=== PATIENT | male | born 1995 | race Caucasian/White ===

== ENCOUNTER 2018-05-02 16:54 | Emergency (ER) | payer OTHER | END 2018-05-02 20:05 | disposition home or self-care (01) | LOC: FTE 20:05 | DX: R20.2 Paresthesia of skin (principal); M79.602 Pain in left arm; Z87.891 Personal history of nicotine dependence | CPT/HCPCS: 82962; 93005; 99283-25 ==

== ENCOUNTER 2018-05-08 10:11 | Emergency (ER) | payer OTHER | END 2018-05-08 11:34 | disposition home or self-care (01) | LOC: FTE 10:11 | DX: R20.2 Paresthesia of skin (principal); Z87.891 Personal history of nicotine dependence | CPT/HCPCS: 99282; Z7502 ==

== ENCOUNTER 2019-04-18 15:11 | Emergency (ER) | payer OTHER ==
[2019-04-18 16:54] LABS: URINE BLOOD (Dip) POC Negative (NEGATIVE); URINE GLUCOSE (Dip) POC Negative (NEGATIVE); URINE KETONES (Dip) POC Negative (NEGATIVE); URINE LEUKOCYTE EST (Dip) POC Negative (NEGATIVE); URINE NITRITE (Dip) POC Negative (NEGATIVE); URINE TOTAL PROTEIN POC Negative (NEGATIVE)
[2019-04-28 18:57] LABS: URINE BLOOD (Dip) POC Negative (NEGATIVE); URINE GLUCOSE (Dip) POC Negative (NEGATIVE); URINE KETONES (Dip) POC Negative (NEGATIVE); URINE LEUKOCYTE EST (Dip) POC Negative (NEGATIVE); URINE NITRITE (Dip) POC Negative (NEGATIVE); URINE TOTAL PROTEIN POC Negative (NEGATIVE)
== END 2019-04-18 17:21 | disposition home or self-care (01) ==
LOC: FTE 15:11
DX: R53.1 Weakness (principal); R19.7 Diarrhea, unspecified; Z87.891 Personal history of nicotine dependence
CPT/HCPCS: 81003; 99282